=== PATIENT | female | born 1970 | race Two or more races ===

== ENCOUNTER 2019-02-28 23:12 | Emergency (ER) | payer MEDICAID ==
[~2019-02-28] VITALS: Ht 152.4 cm; Wt 72.6 kg
--- NOTE | 2019-02-28 23:15 | NUR ---
PT BIB RA FROM HOME WITH A C/O MID TO LOWER BURNING, INTERMITTENT ABD PAIN. PT IS COMPARING THE PAIN WITH CONTRACTIONS. PT STATED THAT IT IS INTERMITTENT. PT HAD DIARRHEA TODAY AND DENIES DIARRHEA TODAY. PT WAS PLACED ON THE MONITOR AND CONTINUOUS PULSE OX.
--- NOTE | 2019-02-28 23:15 | NUR ---
PT IS C/O 9/10 BURNING PAIN. 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
--- NOTE | 2019-02-28 23:20 | NUR ---
18G IV STARTED ON LAC. BLOOD WAS DRAWN AND SENT TO LAB.
[2019-02-28 23:52] LABS: BASOPHILS % (AUTO) 0.5 % (0.0-2.0); EOSINOPHILS % (AUTO) 2.5 % (0.0-6.0); HEMATOCRIT 37 % (33-45); HEMOGLOBIN 12.3 g/dL (11.5-14.8); LYMPHOCYTES # (AUTO) 2.4 /CMM (0.8-4.8); LYMPHOCYTES % (AUTO) 28.4 % (20.0-44.0); MEAN CORPUSCULAR HGB CONC 33 g/dl (31.0-36.0); MEAN CORPUSCULAR VOLUME 84 fL (82-100); MONOCYTES # (AUTO) 0.8 /CMM (0.1-1.30); MONOCYTES % (AUTO) 8.9 % (2.0-12.0); NEUTROPHILS % (AUTO) 59.7 % (43.0-81.0); PLATELET COUNT (AUTO) 375 /CMM (150-450); RED BLOOD CELL COUNT(AUTO) 4.37 MIL/uL (4.0-5.2); WHITE BLOOD COUNT (AUTO) 8.4 K/uL (4.3-11.0)
[2019-02-28] MEDS ORDERED: MORPHINE SULFATE INJ 2 MG/ML DISP.SYRIN ONE (23:52)
[2019-02-28] MEDS ORDERED: ONDANSETRON HCL/PF 4 MG/2 ML VIAL ONE (23:52)
[2019-02-28 23:55] LABS: CALCIUM, SERUM 8.5 mg/dL (8.5-10.1); CREATININE 0.7 mg/dL (0.6-1.3); POTASSIUM 3.8 mmol/L (3.5-5.1)
[2019-03-01] MEDS ORDERED: MORPHINE SULFATE INJ 2 MG/ML DISP.SYRIN IV ONE
[2019-03-01] MEDS ORDERED: ONDANSETRON HCL/PF 4 MG/2 ML VIAL IVP ONE
[2019-03-01] MEDS ORDERED: IV NS 0.9% 1,000 ML BAG IV ONE
--- NOTE | 2019-03-01 | NUR ---
PT REC'D MEDICATION ORDERED. PT ALSO REC'D 2 WARM BLANKETS.
[2019-03-01 00:01] LABS: ALBUMIN 3.3 g/dL (3.4-5.0); BILIRUBIN,TOTAL 0.2 mg/dL (0.2-1.0); TOTAL PROTEIN, SERUM 7.2 g/dL (6.4-8.2)
--- NOTE | 2019-03-01 00:29 | NUR ---
PT AMBULATED TO THE BATHROOM WITH A SLOW STEADY GAIT. PT IS TRYING TO GIVE A URINE SAMPLE.
--- NOTE | 2019-03-01 00:30 | NUR ---
PT RETURNED FROM THE BATHROOM. URINE SAMPLE OBTAINED. PT STATED THAT SHE HAD ABD PAIN WITH URINATION.
--- NOTE | 2019-03-01 00:31 | NUR ---
URINE SAMPLE BROUGHT TO THE STAT LAB.
--- NOTE | 2019-03-01 00:32 | NUR ---
PT IS LEAVING FOR CT VIA [facility].
[2019-03-01 00:42] LABS: APPEARANCE,URINE Slightly Cloudy (CLEAR); BILIRUBIN,URINE Negative (NEGATIVE); BLOOD, URINE Small Ery/uL (NEGATIVE); COLOR,URINE Yellow (YELLOW); KETONES,URINE Negative (NEGATIVE); LEUKOCYTE ESTERASE ,URINE Moderate (NEGATIVE); NITRITE, URINE Negative (NEGATIVE); PH,URINE 5.5 (5.0-8.0); PROTEIN,URINE Negative (NEGATIVE); UGLUCOSE Negative (NEGATIVE); UROBILINOGEN,URINE 0.2 EU/dL (0.2)
--- NOTE | 2019-03-01 00:43 | NUR ---
PT RETURNED FROM CT.
--- NOTE | 2019-03-01 01:13 | NUR ---
CALLING [facility] RE: CT READ.
[2019-03-01 01:15] LABS: BACTERIA,URINE Few /HPF (None Seen); SQUAMOUS EPITHELIAL CELL,UR Few /HPF (None Seen); WBC,URINE TOO NUMEROUS TO COUN /HPF (0-3)
[2019-03-01] MEDS ORDERED: CEFTRIAXONE 1GM BAG (ER ONLY) 50 ML IV ONE (01:34)
[2019-03-01] MEDS ORDERED: CEFTRIAXONE 1 G in IV D5W 50 ML IV ONE (02:00)
--- NOTE | 2019-03-01 02:09 | NUR ---
PT TO BE D/C'D HOME ONCE [facility] IS FINISHED INFUSING.
--- NOTE | 2019-03-01 02:15 | NUR ---
IV removed. Catheter intact and site benign. Pressure and 4x4 applied to site. No bleeding noted. Patient discharged to home in stable condition. Written and verbal after care instructions given. Patient verbalizes understanding of instruction and Rx. Pt ambulated out with a steady gait. VSS. Resp are even and unlabored. Pt's is driving pt home.
[2019-03-01 02:34] VITALS: BP 106/62
--- NOTE | 2019-03-01 02:35 | NUR ---
Note undone in EDM - 03/01/19 at 0241 by [email or web address] IV removed. Catheter intact and site benign. Pressure and 4x4 applied to site. No bleeding noted. Patient discharged to home in stable condition. Written and verbal after care instructions given. Patient and her daughter verbalize understanding of instruction and Rx. Pt left by WC to the car. Pt's daughter had an oxygen tank in the car. 20' NC tubing was given to the Pt's daughter upon discharge. VSS. NAD noted.
== END 2019-03-01 02:15 | disposition home or self-care (01) ==
LOC: ER 23:14
DX: N39.0 Urinary tract infection, site not specified (principal); I10 Essential (primary) hypertension; E11.9 Type 2 diabetes mellitus without complications; Z88.5 Allergy status to narcotic agent
CPT/HCPCS: 36415; 74176; 80048; 80076; 81001; 83690; 84703; 85025; 87086; 96365; 96375; 99284; J0696; J2270; J2405; J7030; J7060; 81000-TC

== ENCOUNTER 2019-10-30 11:07 | Emergency (ER) | payer SELFPAY ==
[~2019-10-30] VITALS: Ht 152.4 cm; Wt 57.6 kg
[2019-10-30 11:15] VITALS: BP 137/76
--- NOTE | 2019-10-30 12:48 | NUR ---
Patient discharged to home in stable condition. Written and verbal after care instructions given. Patient verbalizes understanding of instruction. Pt ambulatory with a steady gait
== END 2019-10-30 12:50 | disposition home or self-care (01) ==
LOC: ER 11:11
DX: S90.02XA Contusion of left ankle, initial encounter (principal); I10 Essential (primary) hypertension; E11.9 Type 2 diabetes mellitus without complications; Z88.5 Allergy status to narcotic agent; V19.9XXA Pedal cyclist (driver) (passenger) injured in unspecified traffic accident, initial encounter; Y93.89 Activity, other specified; Y92.89 Other specified places as the place of occurrence of the external cause; Y99.8 Other external cause status
CPT/HCPCS: 71045-TC; 72040-TC; 73590-TC

== ENCOUNTER 2020-08-09 20:11 | Emergency (ER) | payer SELFPAY ==
[~2020-08-09] VITALS: Ht 152.4 cm; Wt 61.2 kg
--- NOTE | 2020-08-09 21:15 | NUR ---
PT bibself c/o dizziness and n/v x1 week. Pt aaox4 breathing evenly and unlabored. Pt skin warm, dry, and intact. PT attached to monitor and pox. pt given blanket and call light within reach. Lab at bedside
[2020-08-09] MEDS ORDERED: ONDANSETRON 4 MG TAB.RAPDIS ONE (21:22)
[2020-08-09] MEDS ORDERED: MECLIZINE HCL 25 MG TABLET ONE (21:22)
[2020-08-09] MEDS: ONDANSETRON 4 MG TAB.RAPDIS SL ONE (21:25)
[2020-08-09] MEDS: MECLIZINE HCL 25 MG TABLET PO ONE (21:25)
[2020-08-09 21:28] LABS: BASOPHILS % (AUTO) 0.8 % (0.0-2.0); EOSINOPHILS % (AUTO) 2.7 % (0.0-6.0); HEMATOCRIT 39 % (33-45); HEMOGLOBIN 12.9 g/dL (11.5-14.8); LYMPHOCYTES # (AUTO) 2.3 /CMM (0.8-4.8); LYMPHOCYTES % (AUTO) 38.3 % (20.0-44.0); MEAN CORPUSCULAR HGB CONC 34 g/dl (31.0-36.0); MEAN CORPUSCULAR VOLUME 87 fL (82-100); MONOCYTES # (AUTO) 0.5 /CMM (0.1-1.30); MONOCYTES % (AUTO) 7.9 % (2.0-12.0); NEUTROPHILS # (AUTO) 3.1 /CMM (1.8-8.9); NEUTROPHILS % (AUTO) 50.3 % (43.0-81.0); PLATELET COUNT (AUTO) 345 /CMM (150-450); RED BLOOD CELL COUNT(AUTO) 4.45 MIL/uL (4.0-5.2); WHITE BLOOD COUNT (AUTO) 6.1 K/uL (4.3-11.0)
[2020-08-09 21:34] LABS: BILIRUBIN,URINE Negative (NEGATIVE); COLOR,URINE YELLOW (YELLOW); LEUKOCYTE ESTERASE ,URINE Negative (NEGATIVE); NITRITE, URINE Negative (NEGATIVE); PROTEIN,URINE Negative (NEGATIVE); UGLUCOSE Negative (NEGATIVE); UROBILINOGEN,URINE 0.2 EU/dL (0.2)
[2020-08-09 21:39] LABS: CALCIUM, SERUM 8.8 mg/dL (8.5-10.1); CARBON DIOXIDE 26 mmol/L (21-32); CHLORIDE 102 mmol/L (98-107); CREATININE 0.6 mg/dL (0.6-1.3); GLUCOSE 115 mg/dL (74-106); POTASSIUM 3.3 mmol/L (3.5-5.1); SODIUM SERUM 139 mmol/L (136-145); UREA NITROGEN, BLOOD 17 mg/dL (7-18)
[2020-08-09 21:46] LABS: BACTERIA,URINE Few /HPF (None Seen); RBC,URINE 0-2 /HPF (0-2); SQUAMOUS EPITHELIAL CELL,UR Rare /HPF (None Seen)
--- NOTE | 2020-08-09 21:52 | NUR ---
xray at bedside
[2020-08-09] MEDS: POTASSIUM CHLORIDE 20 MEQ TAB.PRT.SR PO ONE (22:30)
[2020-08-09] MEDS ORDERED: POTASSIUM CHLORIDE 20 MEQ TAB.PRT.SR PO ONE (22:31)
[2020-08-09] MEDS ORDERED: MECL-159 PO (23:49)
--- NOTE | 2020-08-09 23:49 | NUR ---
called lab for a trop redraw
--- NOTE | 2020-08-10 01:02 | NUR ---
Patient discharged to home in stable condition. Written and verbal after care instructions given. Patient verbalizes understanding of instruction.Pt ambulatory with a steady gait
[2020-08-10 01:07] VITALS: BP 129/77
== END 2020-08-10 01:02 | disposition home or self-care (01) ==
LOC: ER 20:15
DX: R42 Dizziness and giddiness (principal); R07.89 Other chest pain; E87.6 Hypokalemia; I10 Essential (primary) hypertension; E11.9 Type 2 diabetes mellitus without complications; Z88.6 Allergy status to analgesic agent; Z79.899 Other long term (current) drug therapy
CPT/HCPCS: 36415; 71045; 80048; 81001; 84484 ×2; 84703; 85025; 93005; 99285; J8597; Q0162

== ENCOUNTER 2021-09-25 17:26 | Emergency (ER) | payer SELFPAY ==
[~2021-09-25] VITALS: Ht 144.8 cm; Wt 68.9 kg
[~2021-09-25 17:26] MED LIST: MECL-159 PO
[2021-09-25 17:43] VITALS: BP 129/86
[2021-09-25] MEDS ORDERED: ONDANSETRON 4 MG TAB.RAPDIS SL ONE (18:00)
[2021-09-25] MEDS ORDERED: ONDA4TAB5 PO (18:03)
[2021-09-25] MEDS ORDERED: ONDANSETRON 4 MG TAB.RAPDIS ONE (18:11)
--- NOTE | 2021-09-25 18:42 | NUR ---
Patient discharged to home in stable condition. Written and verbal after care instructions given. Patient verbalizes understanding of instruction.
== END 2021-09-25 18:41 | disposition home or self-care (01) ==
LOC: ER 17:28
DX: B34.9 Viral infection, unspecified (principal); R11.2 Nausea with vomiting, unspecified; Z20.822 Contact with and (suspected) exposure to COVID-19; E11.9 Type 2 diabetes mellitus without complications; I10 Essential (primary) hypertension
CPT/HCPCS: 87804; 99283; C9803; Q0162; U0003

== ENCOUNTER 2022-07-12 21:55 | Emergency (ER) | payer OTHER ==
[~2022-07-12] VITALS: Ht 152.4 cm; Wt 69.9 kg
[~2022-07-12 21:55] MED LIST changes: +ONDA4TAB5 PO
[2022-07-12 23:02] VITALS: BP 156/87
--- NOTE | 2022-07-12 23:06 | NUR ---
SEEN BY DR CAN AT BEDSIDE
--- NOTE | 2022-07-12 23:07 | NUR ---
AT BED SIDE
[2022-07-12] MEDS ORDERED: IBUPROFEN 600 MG TABLET PO ONE (23:30)
[2022-07-12] MEDS ORDERED: IBUPROFEN 600 MG TABLET ONE (23:40)
== END 2022-07-13 00:15 | disposition home or self-care (01) ==
LOC: ER 21:57
DX: H11.32 Conjunctival hemorrhage, left eye (principal); I10 Essential (primary) hypertension; J45.909 Unspecified asthma, uncomplicated; Z88.8 Allergy status to other drugs, medicaments and biological substances